=== PATIENT | male | born 1980 | race Caucasian/White ===

== ENCOUNTER → 2016-09-05 | Outpatient (CLI) | payer OTHER ==
[~2016-09-05] MED LIST: ACET500T68 PO; GADOBUTROL 7.5 MMOL/7.5 ML VIAL INT ART ONE; IOHEXOL 300 MG/ML 50 ML VIAL. INT ART ONE; LIDOCAINE 1% Multi-Dose 20 ML VIAL. ID ONE; NAPR375T3 PO; NARA1TAB PO
--- NOTE | 2016-09-05 13:35 | KCIC ---
PROCEDURE Left shoulder arthrogram for MRI. HISTORY Chronic pain. Injury in August,. TECHNIQUE The procedure, its risks and benefits, and potential complications were discussed with the patient. All questions were answered. Written consent to proceed was obtained. Time-out procedure was performed. Patient was prepped and draped in the usual manner. 1 percent lidocaine was administered locally. Using intermittent fluoroscopic visualization, a 22 gauge spinal needle was positioned no into the glenohumeral joint. Positioning was confirmed with 2 milliliters of Omnipaque 300. Subsequently, 11 milliliters of a mixture of 20 milliliters of normal saline and 0.1 milliliters of Gadavist was injected. Needle was withdrawn. Patient had some nausea during the procedure but by the end of the procedure was back to baseline. He was transferred to the MRI suite for additional imaging. Fluoroscopy time is 45 seconds. Image count is 1. Please see separate MRI report. IMPRESSION Left shoulder arthrogram for MRI. Electronically signed by: Raul Morrison MD (Sep 05, 2016 13:32:46)
--- NOTE | 2016-09-05 13:38 | KCIC ---
PROCEDURE MR arthrogram of the left shoulder HISTORY Chronic left shoulder pain. Not responding to therapy. Injury August 2013. TECHNIQUE Intra-articular contrast injected prior to the scan, and reported separately. The standard 4 plane sequences were obtained including ABER positioning. COMPARISON None FINDINGS The acromioclavicular joint is intact. No evidence of a rotator cuff tear. No significant bursal fluid or contrast in the subdeltoid bursa. There is some subtle signal within the superior labrum but no definitive tear. Labrum otherwise intact. Articular cartilage intact. No HAGL lesion. Biceps tendon intact. No bone lesion or acute fracture. No evidence of nerve entrapment or acute muscle denervation. No evidence of acute soft tissue injury. IMPRESSION 1. No evidence of rotator cuff tear. 2. Mild signal within the superior labrum could be degenerative. A small tear is possible but not definitive. Electronically signed by: Vini Beal MD (Sep 05, 2016 13:37:35)
== END | disposition home or self-care (01) ==
LOC: KCIC 10:23
PROVIDERS: ATTEND Family Medicine
DX: M25.512 Pain in left shoulder (principal)
CPT/HCPCS: 73040; 73222; Q9967; A9585